=== PATIENT | female | born 1985 | race Caucasian/White ===

== ENCOUNTER 2017-07-30 17:24 | Emergency (ER) | payer BC ==
[~2017-07-30] VITALS: Ht 160 cm; Wt 78.5 kg
[2017-07-30 18:22] VITALS: Ht 160 cm; Wt 78.5 kg
[2017-07-30 22:59] VITALS: BP 128/69
== END 2017-07-30 22:59 | disposition home or self-care (01) ==
LOC: ED 17:24
DX: S81.011A Laceration without foreign body, right knee, initial encounter (principal); S00.81XA Abrasion of other part of head, initial encounter; V89.9XXA Person injured in unspecified vehicle accident, initial encounter; Y93.55 Activity, bike riding; Y92.488 Other paved roadways as the place of occurrence of the external cause; Y99.8 Other external cause status
CPT/HCPCS: 90715; J2001